=== PATIENT | male | born 1955 | race Caucasian/White ===

== ENCOUNTER 2021-06-15 19:37 | Emergency (ER) | payer MEDICARE, SELFPAY ==
[2021-06-15 19:40] VITALS: BP 205/54; PULSE 72; RESP 16; TEMP 36.5; O2SAT 95
--- NOTE | 2021-06-15 19:55 | W.ED.GENAD ---
Discharge Plan Disposition Patient Disposition: AGAINST MEDICAL ADVICE Condition: Stable Discharge Details Clinical Impression: Encounter for medical screening examination, Ankle injury ED Provider: Lobito Malone Medical Decision Making Requested patient to wear a mask while here in the department given that [place]vacc[place]. Patient stated that he would [place] himself to the [place]. Patient informed that this was hospital policy not state policy. Patient replied that he did not care and would not wear a mask. Patient was given option to wear a mask to be seen or if he chose to leave his medical screening exam was complete. He is awake and alert and has capacity choosing to exercise his individual right. Blood pressure is high systolically likely related to situation. Otherwise his vital signs are normal. He is neurologically intact. He does not have a life-threatening injury or medical condition. While the patient came in by ambulance and reportedly could not bear weight, he shimmied himself to the end of the stretcher, stood up and walked out under his own power without assist and weight bearing bilaterally. HPI General Mode of arrival: EMS. Date/Time Provider Initiated Documentation: 06/15/21 19:44. Limitations to Documentation: no limitations. Information obtained by: patient and RN notes reviewed. HPI Narrative: Patient came in by ambulance with chief complaint twisted ankle. Per EMS patient had twisted his ankle and fell. He was unable to bear weight. No syncope or loss of consciousness. Family called EMS. Patient refused to wear a mask for EMS. He refuses to wear a mask here. He is not vaccinated against Covid. [place]. He does not wish to cooperate or answer questions because we are insisting that he wear a mask during his visit. States that he would rather leave then be forced to wear a mask. His only complaint is ankle pain. General Stated Complaint: Orthopedic DAVID: 4 Review of Systems Narrative: Not obtained, patient refused to answer. [facility] Medical History (Updated 06/15/21 @ 20:10 by Lobito Malone MD) Medical history unknown Surgical History (Updated 06/15/21 @ 19:59 by Lobito Malone MD) Surgical history unknown Social History (Updated 06/15/21 @ 20:00 by Lobito Malone MD) Smoking/Tobacco Use Status: Unknown Smoking risk assessment performed?: Yes Exam Narrative Exam Narrative: Const: Morbidly obese male in NAD. HEENT: NC/AT. Neck: Supple. Trachea midline. Lungs: Normal respiratory effort. Neuro: A+O x 3. Normal speech, mentation. Cranial nerves II - XII grossly intact. No gross motor or sensory deficit. Ext: BLE edema. Right ankle appears slightly swollen. Course Vital Signs Vital signs: Vital Signs Temperature 97.7 F 06/15/21 19:40 Pulse 72 06/15/21 19:40 Respiratory Rate 16 06/15/21 19:40 Blood Pressure 205/54 H 06/15/21 19:40 Pulse Oximetry 95 06/15/21 19:40 Temperature 97.7 F 06/15/21 19:40 Temperature Source Skin 06/15/21 19:40 Pulse 72 06/15/21 19:40 Respiratory Rate 16 06/15/21 19:40 Blood Pressure 205/54 H 06/15/21 19:40 Blood Pressure Position Supine 06/15/21 19:40 Pulse Oximetry 95 06/15/21 19:40 Oxygen Delivery Method Room Air 06/15/21 19:40 Oxygen Flow Rate 0 06/15/21 19:40
--- NOTE | 2021-06-15 19:57 | NUR.NOTE ---
Nursing Note: Pt brought in by EMS. A mask was put on patient, pt refused to speak with a mask on. Pt not vaccinated for COVID-19. Now unable to continue assessment. Provider came in to talk with pt about mask being required, pt took mask off and stated will not talk with anyone with a mask on and will not wear one. Patient proceeded to scoot self out of bed and walk over to get their shoes. Pt put own shoes on and walked out of ER with no visible limp.
== END 2021-06-15 19:53 | disposition left against medical advice (07) ==
LOC: ER 06-16 07:34
PROVIDERS: Emergency Provider Emergency Medicine
DX: S99.811A Other specified injuries of right ankle, initial encounter (principal); X50.1XXA Overexertion from prolonged static or awkward postures, initial encounter; Z53.29 Procedure and treatment not carried out because of patient's decision for other reasons
CPT/HCPCS: 99283; 99281